=== PATIENT | female | born 1990 | race Hispanic/Latino ===

== ENCOUNTER 2017-10-03 22:50 | Observation (INO) | payer BC ==
[2017-10-03] MEDS ORDERED: Iohexol 240 (50 ml) PO ONE (23:27)
[2017-10-03] MEDS ORDERED: Sodium Chloride 0.9% 1,000 ML IV STA (23:27)
--- NOTE | 2017-10-03 23:30 | ED PDOC ---
HPI: Abdomen Time Seen by Provider: 10/03/17 23:10 Chief Complaint (Nursing): Abdominal Pain Chief Complaint (Provider): abdominal pain History Per: Patient History/Exam Limitations: no limitations Onset/Duration Of Symptoms: Days (3) Current Symptoms Are (Timing): Still Present Location Of Pain/Discomfort: Diffuse Quality Of Discomfort: Cramping Associated Symptoms: Fever, Diarrhea Additional Complaint(s): 27 y/o female presents for evaluation of lower abdominal pain (right>left) and bloating x 3 days. Associated fever, diarrhea. Patient seen at urgent care today and prescribed Bentyl but states it is not helping with the pain. Denies headache, nausea/vomiting, cough, congestion, chest pain, shortness of breath, palpitations, urinary symptoms, recent travel, sick contacts. Last dose Tylenol taken 19:30. Past Medical History Reviewed: Historical Data, Nursing Documentation, Vital Signs Vital Signs: Last Vital Signs Temp 99.9 F H 10/04/17 05:38 Pulse 80 10/04/17 05:38 Resp 18 10/04/17 05:38 BP 112/54 L 10/04/17 05:38 Pulse Ox 100 10/04/17 05:39 - Medical History PMH: No Chronic Diseases - Surgical History Surgical History: No Surg Hx - Family History Family History: States: No Known Family Hx - Living Arrangements Living Arrangements: With Family - Home Medications Home Medications: Ambulatory Orders Medication Instructions Recorded No Known Home Med 10/04/17 - Allergies Allergies/Adverse Reactions: Allergies Allergy/AdvReac Type Severity Reaction Status Date / Time No Known Allergies Allergy Verified 10/03/17 22:53 Review of Systems ROS Statement: Except As Marked, All Systems Reviewed And Found Negative Constitutional: Positive for: Fever Gastrointestinal: Positive for: Abdominal Pain, Diarrhea Physical Exam - Reviewed Nursing Documentation Reviewed: Yes Vital Signs Reviewed: Yes - Physical Exam Appears: Positive for: Well, Non-toxic, No Acute Distress Head Exam: Positive for: ATRAUMATIC, NORMAL INSPECTION, NORMOCEPHALIC Skin: Positive for: Normal Color Eye Exam: Positive for: Normal appearance ENT: Positive for: Normal ENT Inspection Cardiovascular/Chest: Positive for: Regular Rate, Rhythm Respiratory: Positive for: Normal Breath Sounds Gastrointestinal/Abdominal: Positive for: Bowel Sounds, Soft, Tenderness (rlq, suprapubic, llq) Back: Positive for: Normal Inspection Extremity: Positive for: Normal ROM Neurologic/Psych: Positive for: Alert, Oriented - Laboratory Results Result Diagrams: 10/04/17 00:14 10/04/17 00:14 - ECG O2 Sat by Pulse Oximetry: 100 - Progress ED Course And Treament: labs, urine, CT abd/pelvis, IV fluids, IV toradol EXAM: CT Abdomen and Pelvis With Intravenous Contrast CLINICAL HISTORY: 27 years old, female; Pain; Abdominal pain; Generalized; Additional info: Fever , abd pain, diarrhea TECHNIQUE: Axial computed tomography images of the abdomen and pelvis with intravenous contrast. All CT scans at this facility use one or more dose reduction techniques, viz.: automated exposure control; ma/kV adjustment per patient size (including targeted exams where dose is matched to indication; i.e. head); or iterative reconstruction technique. Coronal and sagittal reformatted images were created and reviewed. CONTRAST: 90 mL of [id number] administered intravenously. COMPARISON: No relevant prior studies available. FINDINGS: Lung bases: Minimal atelectasis. ABDOMEN: Liver: Unremarkable. No mass. Gallbladder and bile ducts: No calcified stones. No ductal dilation. Pancreas: No ductal dilation. No mass. Spleen: No splenomegaly. Adrenals: No mass. Kidneys and ureters: No mass. No hydronephrosis. Stomach and bowel: Segmental areas of apparent mild mural thickening of large bowel. No obstruction. PELVIS: Appendix: Borderline enlarged appendix, 6-7 mm in diameter. No definite associated inflammatory stranding. Bladder: Borderline bladder wall thickening, 4-5 mm. Incomplete distention, limiting evaluation. Reproductive: IUD. ABDOMEN and PELVIS: Intraperitoneal space: Trace free fluid within pelvis. No free air. Bones/joints: No acute fracture. Soft tissues: Unremarkable. Vasculature: Unremarkable. No aneurysm. Lymph nodes: No pathologically enlarged lymph nodes. IMPRESSION: 1. Probable mild colitis. Clinical correlation is needed. 2. Borderline enlarged appendix. No definite inflammation. Clinical correlation is needed. 3. Mild cystitis vs underdistention. Correlate with urinalysis. 4. Incidental/non-acute findings are described above. temp now 102.1F IV cipro, IV flagyl ordered Patient evaluated by Dr. Rodriguez ophthalmic surgical assistant on-call; advised NPO, will follow on floor Dr. Méndez discussed case with Dr. Castillo, medical service on-call, for admission Disposition - Clinical Impression Clinical Impression: Acute colitis - Patient ED Disposition Is Patient to be Admitted: Yes - Disposition Disposition Time: 04:00 Condition: FAIR
[2017-10-04] MEDS ORDERED: Iohexol 240 (50 ml) ONE (00:16)
[2017-10-04 00:17] LABS: BASO % 0.1 % (0.0-2.0); EOS % 0.7 % (0.0-4.0); HEMOGLOBIN 12.5 g/dL (12.0-16.0); LYMPH # 0.5 K/uL (1.0-4.3); LYMPH % 13.5 % (20.0-40.0); MEAN CELL VOLUME 83.7 fl (81.0-99.0); MEAN CORPUSCULAR HEMOGLOBIN 27.4 pg (27.0-31.0); MEAN CORPUSCULAR HGB CONC 32.8 g/dL (33.0-37.0); MEAN PLATELET VOLUME 9.1 fl (7.2-11.7); MONO # 0.4 K/uL (0.0-0.8); MONO % 10.4 % (0.0-10.0); NEUT # 2.6 K/uL (1.8-7.0); NEUT % 75.3 % (50.0-75.0); RBC 4.55 Mil/uL (3.80-5.20); RED CELL DISTRIBUTION WIDTH 14.9 % (11.5-14.5); WHITE BLOOD COUNT 3.5 K/uL (4.8-10.8)
[2017-10-04 00:26] LABS: ALB/GLOB RATIO 1.1 (1.0-2.1); ALBUMIN 3.9 g/dL (3.5-5.0); ALT/SGPT 24 U/L (9-52); AST/SGOT 37 U/L (14-36); BLOOD UREA NITROGEN 7 mg/dl (7-17); GFR AFRICAN-AMERICAN > 60; GFR NON-AFRICAN AMERICAN > 60; LIPASE 48 U/L (23-300)
[2017-10-04] MEDS ORDERED: Sodium Chloride 0.9% 50 ML IV ONE (01:47)
[2017-10-04] MEDS ORDERED: Iohexol 300 100 ML IJ ONE (01:48)
--- NOTE | 2017-10-04 03:06 | CT ---
EXAM: CT Abdomen and Pelvis With Intravenous Contrast CLINICAL HISTORY: 27 years old, female; Pain; Abdominal pain; Generalized; Additional info: Fever, abd pain, diarrhea TECHNIQUE: Axial computed tomography images of the abdomen and pelvis with intravenous contrast. All CT scans at this facility use one or more dose reduction techniques, viz.: automated exposure control; ma/kV adjustment per patient size (including targeted exams where dose is matched to indication; i.e. head); or iterative reconstruction technique. Coronal and sagittal reformatted images were created and reviewed. CONTRAST: 90 mL of [id number] administered intravenously. COMPARISON: No relevant prior studies available. FINDINGS: Lung bases: Minimal atelectasis. ABDOMEN: Liver: Unremarkable. No mass. Gallbladder and bile ducts: No calcified stones. No ductal dilation. Pancreas: No ductal dilation. No mass. Spleen: No splenomegaly. Adrenals: No mass. Kidneys and ureters: No mass. No hydronephrosis. Stomach and bowel: Segmental areas of apparent mild mural thickening of large bowel. No obstruction. PELVIS: Appendix: Borderline enlarged appendix, 6-7 mm in diameter. No definite associated inflammatory stranding. Bladder: Borderline bladder wall thickening, 4-5 mm. Incomplete distention, limiting evaluation. Reproductive: IUD. ABDOMEN and PELVIS: Intraperitoneal space: Trace free fluid within pelvis. No free air. Bones/joints: No acute fracture. Soft tissues: Unremarkable. Vasculature: Unremarkable. No aneurysm. Lymph nodes: No pathologically enlarged lymph nodes. IMPRESSION: 1. Probable mild colitis. Clinical correlation is needed. 2. Borderline enlarged appendix. No definite inflammation. Clinical correlation is needed. 3. Mild cystitis vs underdistention. Correlate with urinalysis. 4. Incidental/non-acute findings are described above.
[2017-10-04] MEDS ORDERED: metroNIDAZOLE 500mg/100ml NS 100 ML IV STA (03:42)
[2017-10-04] MEDS ORDERED: Ciprofloxacin 400mg/200ml D5W 400 MG/200 ML BAG IV ONE (03:42)
[2017-10-04 03:54] LABS: VENOUS BLOOD GAS BASE EXCESS 0.8 mmol/L (0.0-2.0); VENOUS BLOOD GAS PCO2 46 mmHg (40-60); VENOUS BLOOD GAS PO2 25 mm/Hg (30-55); VENOUS BLOOD PH 7.37 (7.32-7.43)
[2017-10-04] MEDS ORDERED: metroNIDAZOLE 500mg/100ml NS 100 ML IVPB ONE (04:04)
--- NOTE | 2017-10-04 04:39 | CP.PCM.CON ---
History of Present Illness - History of Present Illness History of Present Illness: Surgery Consult note- Dr. Jackson Reason for consult: ABD pain, r/o acute appendectomy 27F w/ no significant pmhx presents to [facility] ED with crampy lower abdominal pain localized to the RLQ for 3 days. States never had pain similar to this in the past. Patient has been having associated fevers (Tm 103) and non-bloody loose stool. denies nausea, vomiting. Earlier today patient went to Urgent clinic and was prescribed Bentyl with no relief, and abx that she did not fill. Denies recent sick contacts, foreign travel, or food outside of normal intake. Denies: nausea, vomiting, chest pain, shortness of breath, changes in bladder habits FDLMP: 04/2017 s/p IUD placement PMH: none PSH: denies ALL: NKDA SocialHx: denies tobacco, recreational drug use FH: non-contributory 12pt review of systems conducted, negative otherwise stated above Review of Systems - Review of Systems All systems: reviewed and no additional remarkable complaints except - Constitutional Constitutional: As Per HPI Past Patient History - Past Social History Smoking Status: Never Smoked - PSYCHIATRIC Hx Substance Use: No - SURGICAL HISTORY Hx Surgeries: No - ANESTHESIA Hx Anesthesia: No Meds Allergies/Adverse Reactions: Allergies Allergy/AdvReac Type Severity Reaction Status Date / Time No Known Allergies Allergy Verified 10/03/17 22:53 - Medications Medications: Current Medications Metronidazole (Flagyl 500mg/100ml Ns) 100 mls @ 100 mls/hr IV STAT STA PRN Reason: Protocol Stop: 10/04/17 04:41 Last Admin: 10/04/17 04:04 Dose: 100 mls/hr Physical Exam - Constitutional Appears: Non-toxic, No Acute Distress Additional comments: during time of examination, patient has icepacks on forehead due to fever of 102. - Head Exam Head Exam: ATRAUMATIC - Eye Exam Eye Exam: EOMI. absent: Scleral icterus - ENT Exam ENT Exam: Mucous Membranes Moist - Respiratory Exam Respiratory Exam: NORMAL BREATHING PATTERN. absent: Accessory Muscle Use, Respiratory Distress - Cardiovascular Exam Cardiovascular Exam: +S1, +S2. absent: Bradycardia, Tachycardia - GI/Abdominal Exam GI & Abdominal Exam: Soft, Tenderness (tender to palpation in RLQ). absent: Distended, Firm, Guarding, Rebound, Rigid Additional comments: Positive: McBurneys point Negative: rebound, rovsings, psoas, obturator - Extremities Exam Extremities exam: Positive for: normal inspection. Negative for: calf tenderness - Back Exam Back exam: absent: CVA tenderness (L), CVA tenderness (R) - Neurological Exam Neurological exam: Alert, Oriented x3 - Psychiatric Exam Psychiatric exam: Normal Affect - Skin Skin Exam: Intact, Warm Results - Vital Signs Recent Vital Signs: Last Vital Signs Temp 102.1 F H 10/04/17 03:35 Pulse 85 10/03/17 22:53 Resp 16 10/03/17 22:53 BP 115/67 10/03/17 22:53 Pulse Ox 100 10/04/17 03:43 - Labs Result Diagrams: 10/04/17 00:14 10/04/17 00:14 Labs: Laboratory Results - last 24 hr 10/04/17 10/04/17 10/04/17 00:14 00:14 03:51 WBC 3.5 L RBC 4.55 Hgb 12.5 Hct 38.1 MCV 83.7 MCH 27.4 MCHC 32.8 L RDW 14.9 H Plt Count 86 L MPV 9.1 Neut % (Auto) 75.3 H Lymph % (Auto) 13.5 L [place] % (Auto) 10.4 H Eos % (Auto) 0.7 Baso % (Auto) 0.1 Neut # (Auto) 2.6 Lymph # (Auto) 0.5 L [place] # (Auto) 0.4 Eos # (Auto) 0.0 Baso # (Auto) 0.0 pO2 25 L VBG pH 7.37 VBG pCO2 46 VBG HCO3 24.1 VBG Total CO2 28.0 VBG O2 Sat (Calc) 50.0 VBG Base Excess 0.8 VBG Potassium 3.8 Glucose 88 Lactate 0.9 FiO2 21.0 Sodium 140 137.0 Potassium 4.1 Chloride 101 102.0 Carbon Dioxide 30 Anion Gap 13 BUN 7 Creatinine 0.7 Est GFR ( Amer) > 60 Est GFR (Non-Af Amer) > 60 Random Glucose 102 Calcium 9.0 Total Bilirubin 0.4 AST 37 H ALT 24 Alkaline Phosphatase 40 Total Protein 7.3 Albumin 3.9 Globulin 3.4 Albumin/Globulin Ratio 1.1 Lipase 48 Venous Blood Potassium 3.8 Assessment & Plan - Assessment and Plan (Free Text) Assessment: 27F w/ abdominal pain; gastroenteritis vs appendicitis CT Scan: mural thickening of large bowel w/ no signs of obstruction. Appendix measures approx 7mm, no signs of inflammatory stranding Plan: - NPO - IVF/Abx - pain control & anti-emetic PRN - serial abd exams - discussed case in detail with Dr. Jackson surgical attending - recommend further work up for thrombocytopenia - will continue to follow for now. PGY1
[2017-10-04] MEDS ORDERED: Ciprofloxacin 400mg/200ml D5W 400 MG/200 ML BAG IVPB ONE (04:41)
[2017-10-04] MEDS ORDERED: Lactated Ringer's 1,000 ML IV SCH (05:15)
[2017-10-04] MEDS ORDERED: Dextrose 5%/Lactated Ringer's 1,000 ML IV SCH (08:30)
[2017-10-04] MEDS ORDERED: Ciprofloxacin 400mg/200ml D5W 400 MG/200 ML BAG IVPB SCH (09:00)
[2017-10-04] MEDS: metroNIDAZOLE 500mg/100ml NS 250 MG in Premixed IV 1 EA IVPB SCH ×2 (11:09→17:51)
[2017-10-04] MEDS: Piperacillin/Tazobact 3.375 GM in Sodium Chloride 0.9% 100 ML IVPB SCH ×2 (11:10→17:48)
[2017-10-04 11:47] LABS: SQUAMOUS EPITHIAL < 1 /hpf (0-5); URINE BILIRUBIN NEGATIVE (NEGATIVE); URINE BLOOD NEGATIVE (NEGATIVE); URINE CLARITY SLIGHTY-CLOUDY (Clear); URINE COLOR YELLOW (YELLOW); URINE GLUCOSE (UA) NEG (Normal); URINE LEUKOCYTE ESTERASE NEG Leu/uL (Negative); URINE PROTEIN NEGATIVE (NEGATIVE); URINE UROBILINOGEN 0.2-1.0 mg/dL (0.2-1.0)
--- NOTE | 2017-10-04 13:15 | CP.PCM.HP ---
History of Present Illness - History of Present Illness History of Present Illness: CC: abdominal pain HPI: 27 y/o woman w/ no significant pmh presented to the ED with abdominal pain. Patient reports pain crampy in nature, localized to the RLQ for 3 days. Patient denies pain similar to this in the past. Patient reports associated fevers (Tm 103F), nausea, vomiting, and non-bloody loose stool. Patient initially went to Urgent clinic and was prescribed Bentyl with no relief, and abx that she did not fill. Patient denies recent sick contacts, foreign travel , or food outside of normal intake. Patient currently denies nausea, vomiting, chest pain, shortness of breath, changes in bladder habits. PMD: none PMH: none meds: none allergies: NKDA PSH: denies Fam: non-contributory SOC: denies smoking, alcohol, and drugs ROS: 12 points assessed and negative unless otherwise reported in HPI Present on Admission - Present on Admission Any Indicators Present on Admission: No History of DVT/PE: No History of Uncontrolled Diabetes: No Urinary Catheter: No Decubitus Ulcer Present: No Review of Systems - Constitutional Constitutional: absent: Chills, Fever - EENT Eyes: absent: Change in Vision - Cardiovascular Cardiovascular: absent: Chest Pain - Respiratory Respiratory: absent: Dyspnea - Gastrointestinal Gastrointestinal: As Per HPI, Abdominal Pain, Diarrhea, Nausea, Vomiting - Genitourinary Genitourinary: absent: Dysuria - Integumentary Integumentary: absent: Rash - Neurological Neurological: absent: Dizziness, Headaches Past Patient History - Past Medical History & Family History Past Medical History?: No - Past Social History Smoking Status: Never Smoked - CARDIAC Hx Cardiac Disorders: No - PULMONARY Hx Respiratory Disorders: No - NEUROLOGICAL Hx Neurological Disorder: No - HEENT Hx HEENT Problems: No - RENAL Hx Chronic Kidney Disease: No - ENDOCRINE/METABOLIC Hx Endocrine Disorders: No - HEMATOLOGICAL/ONCOLOGICAL Hx Blood Disorders: No Hx AIDS: No Hx Human Immunodeficiency Virus (HIV): No - INTEGUMENTARY Hx Dermatological Problems: No - MUSCULOSKELETAL/RHEUMATOLOGICAL Hx Musculoskeletal Disorders: No Hx Falls: No - GASTROINTESTINAL Hx Gastrointestinal Disorders: No - GENITOURINARY/GYNECOLOGICAL Hx Genitourinary Disorders: No - PSYCHIATRIC Hx Substance Use: No - SURGICAL HISTORY Hx Surgeries: No - ANESTHESIA Hx Anesthesia: No Meds Allergies/Adverse Reactions: Allergies Allergy/AdvReac Type Severity Reaction Status Date / Time No Known Allergies Allergy Verified 10/03/17 22:53 Physical Exam - Constitutional Appears: Non-toxic, No Acute Distress - Head Exam Head Exam: ATRAUMATIC, NORMAL INSPECTION, NORMOCEPHALIC - Eye Exam Eye Exam: Normal appearance - ENT Exam ENT Exam: Mucous Membranes Moist - Neck Exam Neck exam: Positive for: Full Rom. Negative for: Tenderness - Respiratory Exam Respiratory Exam: Clear to Auscultation Bilateral. absent: Accessory Muscle Use , Decreased Breath Sounds, Rales, Rhonchi, Wheezes, Respiratory Distress - Cardiovascular Exam Cardiovascular Exam: REGULAR RHYTHM. absent: Tachycardia - GI/Abdominal Exam GI & Abdominal Exam: Normal Bowel Sounds, Soft, Tenderness (periumbilical). absent: Distended - Extremities Exam Extremities exam: Positive for: normal inspection. Negative for: calf tenderness - Neurological Exam Neurological exam: Alert, Oriented x3 - Skin Skin Exam: Dry, Intact, Normal Color, Warm Results - Vital Signs Recent Vital Signs: Last Vital Signs Temp 97.4 F L 10/04/17 08:34 Pulse 74 10/04/17 08:34 Resp 20 10/04/17 08:34 BP 93/57 L 10/04/17 08:34 Pulse Ox 96 10/04/17 08:34 - Labs Result Diagrams: 10/04/17 00:14 10/04/17 00:14 Labs: Laboratory Results - last 24 hr 10/04/17 10/04/17 10/04/17 00:14 00:14 03:51 WBC 3.5 L RBC 4.55 Hgb 12.5 Hct 38.1 MCV 83.7 MCH 27.4 MCHC 32.8 L RDW 14.9 H Plt Count 86 L MPV 9.1 Neut % (Auto) 75.3 H Lymph % (Auto) 13.5 L [place] % (Auto) 10.4 H Eos % (Auto) 0.7 Baso % (Auto) 0.1 Neut # (Auto) 2.6 Lymph # (Auto) 0.5 L [place] # (Auto) 0.4 Eos # (Auto) 0.0 Baso # (Auto) 0.0 pO2 25 L VBG pH 7.37 VBG pCO2 46 VBG HCO3 24.1 VBG Total CO2 28.0 VBG O2 Sat (Calc) 50.0 VBG Base Excess 0.8 VBG Potassium 3.8 Glucose 88 Lactate 0.9 FiO2 21.0 Sodium 140 137.0 Potassium 4.1 Chloride 101 102.0 Carbon Dioxide 30 Anion Gap 13 BUN 7 Creatinine 0.7 Est GFR ( Amer) > 60 Est GFR (Non-Af Amer) > 60 Random Glucose 102 Calcium 9.0 Total Bilirubin 0.4 AST 37 H ALT 24 Alkaline Phosphatase 40 Total Protein 7.3 Albumin 3.9 Globulin 3.4 Albumin/Globulin Ratio 1.1 Lipase 48 Venous Blood Potassium 3.8 Urine Color Urine Clarity Urine pH Ur Specific [place] Urine Protein Urine Glucose (UA) Urine Ketones Urine Blood Urine Nitrate Urine Bilirubin Urine Urobilinogen Ur Leukocyte Esterase Urine RBC (Auto) Urine Microscopic WBC Ur Squamous Epith Cells 10/04/17 11:18 WBC RBC Hgb Hct MCV MCH MCHC RDW Plt Count MPV Neut % (Auto) Lymph % (Auto) [place] % (Auto) Eos % (Auto) Baso % (Auto) Neut # (Auto) Lymph # (Auto) [place] # (Auto) Eos # (Auto) Baso # (Auto) pO2 VBG pH VBG pCO2 VBG HCO3 VBG Total CO2 VBG O2 Sat (Calc) VBG Base Excess VBG Potassium Glucose Lactate FiO2 Sodium Potassium Chloride Carbon Dioxide Anion Gap BUN Creatinine Est GFR ( Amer) Est GFR (Non-Af Amer) Random Glucose Calcium Total Bilirubin AST ALT Alkaline Phosphatase Total Protein Albumin Globulin Albumin/Globulin Ratio Lipase Venous Blood Potassium Urine Color Yellow Urine Clarity Slighty-cloudy Urine pH 5.0 Ur Specific [place] 1.031 H Urine Protein Negative Urine Glucose (UA) Neg Urine Ketones Negative Urine Blood Negative Urine Nitrate Negative Urine Bilirubin Negative Urine Urobilinogen 0.2-1.0 Ur Leukocyte Esterase Neg Urine RBC (Auto) 1 Urine Microscopic WBC 2 Ur Squamous Epith Cells < 1 Assessment & Plan (1) Acute colitis Status: Acute - Assessment and Plan (Free Text) Plan: afebrile, non-tachycardic, normotensive CBC and CMP WNL ciprofloxacin 400 mg IV Q12 day 1 metronidazole 500 mg IV Q8h day 1 zosyn 3.375 mg IV Q8h day 1 protonix 40 mg IV daily prophylactic measures: DVT SCDs monitor for acute changes
[2017-10-04 16:12] VITALS: BP 100/64; PULSE 79; RESP 18; TEMP 99.2; O2SAT 99
== END 2017-10-04 19:10 | disposition home or self-care (01) ==
LOC: H.ER 22:50 → H.ERHOLD 10-04 03:57 → INTOOBSV 10-04 03:57 → H.MEDSURG1 10-04 06:09
PROVIDERS: ADMIT Family Medicine; ATTEND Family Medicine
DX: K52.9 Noninfective gastroenteritis and colitis, unspecified (principal); D69.6 Thrombocytopenia, unspecified
CPT/HCPCS: 74177; 80053; 81003; 81025; 82803; 83690; 85025; 87040; 87086; 96361; 96365; 96375; 96376; 99284; C9113; G0378; J0744; J1885; J2270; J2543; J7030; J7120; Q9966; Q9967